=== PATIENT | male | born 1975 | race Caucasian/White ===

== ENCOUNTER 2022-03-30 14:34 | Emergency (ER) | payer SELFPAY ==
[~2022-03-30] VITALS: Ht 165.1 cm; Wt 80.3 kg
[2022-03-30 16:30] VITALS: BP 136/83
[2022-03-30] MEDS ORDERED: IBUP800T27 PO (16:39)
== END 2022-03-30 16:58 | disposition home or self-care (01) ==
LOC: ER 14:34
DX: S63.501A Unspecified sprain of right wrist, initial encounter (principal); X58.XXXA Exposure to other specified factors, initial encounter; Y93.89 Activity, other specified; Y92.89 Other specified places as the place of occurrence of the external cause; Y99.8 Other external cause status
CPT/HCPCS: 73110